=== PATIENT | female | born 1960 | race Caucasian/White ===

== ENCOUNTER 2017-12-21 15:37 | Emergency (ER) | payer SELFPAY ==
[2017-12-21 15:40] VITALS: BP 130/82
[2017-12-21] MEDS ORDERED: IV NORMAL SALINE 1,000ML 1,000 ML IV ONE (16:00)
--- NOTE | 2017-12-21 16:05 | PHYS DOC ---
Past History Past Medical History: No Pertinent History Past Surgical History: No Surgical History Smoking: Non-smoker Alcohol Use: None Drug Use: None Adult General Chief Complaint Chief Complaint: SHORTNESS OF BREATH HPI HPI 57-year-old female presents with 4 day history of dry cough, sore throat, body aches, and mild shortness of breath. The patient has no known sick contacts. She is unsure if she has had a fever at home. She had mild diarrhea yesterday. She denies chest pain. The patient mentioned that she used to be on Coumadin for DVT she had many years ago. She has not been taking Coumadin for several months because she has not had insurance. She was feeling fine prior to this illness. Review of Systems Review of Systems Constitutional: Denies chills [] Eyes: Denies change in visual acuity, redness, or eye pain [] HENT: Has nasal congestion and sore throat [] Respiratory: Dry cough with mild shortness of breath [] Cardiovascular: No additional information not addressed in HPI [] GI: Denies abdominal pain, nausea, vomiting, bloody stools [] : Denies dysuria or hematuria [] Musculoskeletal: Denies back pain or joint pain [] Integument: Denies rash or skin lesions [] Neurologic: Denies headache, focal weakness or sensory changes [] Endocrine: Denies polyuria or polydipsia [] All other systems were reviewed and found to be within normal limits, except as documented in this note. Current Medications Current Medications Current Medications Medications (Trade) Dose Ordered Sig/Wei Start Time Stop Time Status Last Admin Dose Admin Sodium Chloride 1,000 ml @ 1,000 mls/hr 1X ONCE 12/21/17 16:00 12/21/17 16:59 UNV Physical Exam Physical Exam Constitutional: Well developed, well nourished, no acute distress, non-toxic appearance. [] HENT: Normocephalic, atraumatic, bilateral external ears normal, oropharynx moist, no oral exudates, nasal congestion. [] Eyes: PERRLA, EOMI, conjunctiva normal, no discharge. [] Neck: Normal range of motion, no tenderness, supple, no stridor. mild anterior adenopathy worse in the right [] Cardiovascular:Heart rate regular rhythm, no murmur [] Lungs & Thorax: Bilateral breath sounds clear to auscultation [] Abdomen: Bowel sounds normal, soft, no tenderness, no masses, no pulsatile masses. [] Skin: Warm, dry, no erythema, no rash. [] Back: No tenderness, no CVA tenderness. [] Extremities: No tenderness, no cyanosis, no clubbing, ROM intact, no edema. [] Neurologic: Alert and oriented X 3, normal motor function, normal sensory function, no focal deficits noted. [] Psychologic: Affect normal, judgement normal, mood normal. [] EKG EKG [] Radiology/Procedures Radiology/Procedures EXAM: Chest, 2 views. HISTORY: Shortness of air. COMPARISON: None. FINDINGS: Frontal and lateral views of the chest are obtained. There is no infiltrate, effusion or pneumothorax. The heart is normal in size. IMPRESSION: No acute pulmonary finding. Electronically signed by: Iliana Arguelles MD (12/21/2017 4:21 PM) [facility] [place][] Course & Med Decision Making Course & Med Decision Making Pertinent Labs and Imaging studies reviewed. (See chart for details) The patient's labs are unremarkable. Her chest x-ray is unremarkable. Her vital signs are within normal limits. She was given Toradol for her headache has had improvement. Her calves are normal in size bilaterally. They're not painful to palpation. Denies any other evidence to suggest DVT. I believe that she is suffering from a viral illness and is mildly dehydrated. Recommend that she drink plenty of fluids and get rest at home. If her condition worsens or new symptoms develop, she is welcome to return to the emergency department. [] Dragon Disclaimer Dragon Disclaimer This electronic medical record was generated, in whole or in part, using a voice recognition dictation system. Departure Departure: Referrals: PCP,NO (PCP) Scripts Guaifenesin/Codeine Phosphate (GUAIFENESIN-CODEINE SYRUP) 118 Ml Liquid 5 ML PO Q6HRS PRN for COUGH, #120 ML Prov: CHIQUI MCKEON DO 12/21/17 CHIQUI MCKEON DO December 21, 2017 16:05
--- NOTE | 2017-12-21 16:24 | RAD ---
EXAM: Chest, 2 views. HISTORY: Shortness of air. COMPARISON: None. FINDINGS: Frontal and lateral views of the chest are obtained. There is no infiltrate, effusion or pneumothorax. The heart is normal in size. IMPRESSION: No acute pulmonary finding. Electronically signed by: Iliana Arguelles MD (12/21/2017 4:21 PM) [facility] [place]
[2017-12-21 16:34] LABS: BASO # 0.1 x10^3/uL (0.0-0.2); BASO % 1 % (0-3); EOS # 0.3 x10^3/uL (0.0-0.7); EOS % 6 % (0-3); HEMOGLOBIN 13.8 g/dL (12.0-15.5); LYMPH # 1.3 x10^3/uL (1.0-4.8); LYMPH % 23 % (24-48); MEAN CORPUSCULAR HEMOGLOBIN 29 pg (25-35); MEAN CORPUSCULAR HGB CONC 34 g/dL (31-37); MEAN CORPUSCULAR VOLUME 86 fL (79-100); MONO # 0.5 x10^3/uL (0.0-1.1); MONO % 9 % (0-9); NEUT # 3.3 x10^3uL (1.8-7.7); NEUT % 61 % (31-73); PLATELET COUNT 287 x10^3/uL (140-400); RED BLOOD COUNT 4.76 x10^6/uL (3.50-5.40); RED CELL DISTRIBUTION WIDTH 14.8 % (11.5-14.5); WHITE BLOOD COUNT 5.4 x10^3/uL (4.0-11.0)
[2017-12-21 16:39] LABS: CREATININE 1.1 mg/dL (0.6-1.0); GFR 50.8; POTASSIUM 3.8 mmol/L (3.5-5.1)
[2017-12-21] MEDS ORDERED: KETOROLAC 30 MG/ML VIAL. IV ONE (17:00)
[2017-12-21] MEDS ORDERED: GUAI118L13 PO (18:10)
== END 2017-12-21 18:21 | disposition home or self-care (01) ==
LOC: ER 15:37
DX: B34.9 Viral infection, unspecified (principal); E86.0 Dehydration; R51 Headache; Z86.718 Personal history of other venous thrombosis and embolism
CPT/HCPCS: 36415; 71046; 80048; 85025; 96361; 96374; 99285; J1885; J7030

== ENCOUNTER 2018-01-14 10:55 | Emergency (ER) | payer SELFPAY ==
[~2018-01-14] VITALS: Ht 170.2 cm; Wt 86.9 kg
[~2018-01-14 10:55] MED LIST: GUAI118L13 PO
[2018-01-14 11:07] VITALS: BP 135/81
--- NOTE | 2018-01-14 11:25 | PHYS DOC ---
Past History Past Medical History: Diabetes, High Cholesterol, Hypertension Past Surgical History: No Surgical History Smoking: Non-smoker Alcohol Use: None Drug Use: None Adult General Chief Complaint Chief Complaint: SKIN PROBLEM HPI HPI 57-year-old female presents with with scattered rash "all over her body". This started one week ago when the patient started a new garden. She feels like she is getting new areas effected on her skin every couple of days. It is intensely pruritic. She decided to come in today because she can't take the itching anymore and because she has rash around her left eye. She denies fever or chills. She never had anything like this before. Review of Systems Review of Systems Constitutional: Denies fever or chills [] Eyes: Denies change in visual acuity, redness, or eye pain [] HENT: Denies nasal congestion or sore throat [] Respiratory: Denies cough or shortness of breath [] Cardiovascular: No additional information not addressed in HPI [] GI: Denies abdominal pain, nausea, vomiting, bloody stools or diarrhea [] : Denies dysuria or hematuria [] Musculoskeletal: Denies back pain or joint pain [] Integument: Skin rash all over[] Neurologic: Denies headache, focal weakness or sensory changes [] Endocrine: Denies polyuria or polydipsia [] All other systems were reviewed and found to be within normal limits, except as documented in this note. Current Medications Current Medications Current Medications Medications (Trade) Dose Ordered Sig/[facility] Start Time Stop Time Status Last Admin Dose Admin Methylprednisolone Sodium Succinate (SOLU-Medrol 125MG VIAL) 125 mg 1X ONCE 01/14/18 11:45 01/14/18 11:46 Allergies Allergies Allergies Coded Allergies Type Severity Reaction Last Updated Verified Penicillins Allergy Unknown 12/21/17 Yes Sulfa (Sulfonamide Antibiotics) Allergy Unknown 12/21/17 Yes Physical Exam Physical Exam Constitutional: Well developed, well nourished, no acute distress, non-toxic appearance. [] HENT: Normocephalic, atraumatic, bilateral external ears normal, oropharynx moist, no oral exudates, nose normal. [] Eyes: PERRLA, EOMI, conjunctiva normal, no discharge. [] Neck: Normal range of motion, no tenderness, supple, no stridor. [] Cardiovascular:Heart rate regular rhythm, no murmur [] Lungs & Thorax: Bilateral breath sounds clear to auscultation [] Abdomen: Bowel sounds normal, soft, no tenderness, no masses, no pulsatile masses. [] Skin: Erythematous, raised, vesicular patches on the patient's bilateral arms, bilateral legs, around her left eye, on her upper chest.[] Back: No tenderness, no CVA tenderness. [] Extremities: No tenderness, no cyanosis, no clubbing, ROM intact, no edema. [] Neurologic: Alert and oriented X 3, normal motor function, normal sensory function, no focal deficits noted. [] Psychologic: Affect normal, judgement normal, mood normal. [] Current Patient Data Vital Signs Vital Signs Date Time Temp Pulse Resp B/P (MAP) Pulse Ox O2 Delivery O2 Flow Rate FiO2 01/14/18 11:07 98.2 90 18 96 Room Air EKG EKG [] Radiology/Procedures Radiology/Procedures [] Course & Med Decision Making Course & Med Decision Making Pertinent Labs and Imaging studies reviewed. (See chart for details) Patient has contact dermatitis likely due to poison luis. I will treat her with 125 of Solu-Medrol in the ER followed by 14 days of steroid taper. I will also prescribe triamcinolone cream for comfort. [] Dragon Disclaimer Dragon Disclaimer This electronic medical record was generated, in whole or in part, using a voice recognition dictation system. Departure Departure: Referrals: PCP,NO (PCP) CHIQUI MCKEON DO Jan 14, 2018 11:25
[2018-01-14] MEDS ORDERED: TRIA15CR50 TP (11:30)
[2018-01-14] MEDS ORDERED: PRED-220 PO (11:30)
[2018-01-14] MEDS ORDERED: methylPREDNISolone SOD SUCC PF 125 MG/2 ML VIAL. IM ONE (11:45)
== END 2018-01-14 11:40 | disposition home or self-care (01) ==
LOC: ER 10:55
DX: L25.9 Unspecified contact dermatitis, unspecified cause (principal); E11.9 Type 2 diabetes mellitus without complications; E78.00 Pure hypercholesterolemia, unspecified; I10 Essential (primary) hypertension; Z88.0 Allergy status to penicillin; Z88.2 Allergy status to sulfonamides
CPT/HCPCS: 96372; 99283; J2930

== ENCOUNTER 2018-01-31 11:13 | Inpatient (IN) | payer SELFPAY ==
[~2018-01-31] VITALS: Ht 162.6 cm; Wt 88.5 kg
[~2018-01-31 11:13] MED LIST changes: +PRED-220 PO; +TRIA15CR50 TP
[2018-01-31 11:56] LABS: BASO # 0.1 x10^3/uL (0.0-0.2); BASO % 1 % (0-3); EOS # 0.3 x10^3/uL (0.0-0.7); EOS % 4 % (0-3); HEMATOCRIT 38.8 % (36.0-47.0); LYMPH % 10 % (24-48); MEAN CORPUSCULAR HEMOGLOBIN 29 pg (25-35); MEAN CORPUSCULAR HGB CONC 34 g/dL (31-37); MEAN CORPUSCULAR VOLUME 86 fL (79-100); MONO # 0.8 x10^3/uL (0.0-1.1); MONO % 8 % (0-9); NEUT # 7.5 x10^3uL (1.8-7.7); NEUT % 77 % (31-73); PLATELET COUNT 218 x10^3/uL (140-400); RED BLOOD COUNT 4.53 x10^6/uL (3.50-5.40); RED CELL DISTRIBUTION WIDTH 14.4 % (11.5-14.5); WHITE BLOOD COUNT 9.8 x10^3/uL (4.0-11.0)
[2018-01-31 12:01] LABS: CREATININE 1.6 mg/dL (0.6-1.0); POTASSIUM 3.5 mmol/L (3.5-5.1)
[2018-01-31] MEDS ORDERED: IV NORMAL SALINE 1,000ML 1,000 ML IV ONE ×2 (12:15→13:30)
--- NOTE | 2018-01-31 12:58 | RAD ---
EXAM: Bilateral lower extremity venous Doppler sonogram. HISTORY: DVT. Pain. TECHNIQUE: Montes scale and color Doppler sonographic evaluation of the bilateral lower extremity veins with spectral waveform analysis was performed. FINDINGS: There is nonocclusive thrombus within the left common femoral vein, occlusive thrombus within the left superficial femoral vein and popliteal vein, and nonocclusive thrombus within the left calf veins. There is normal color flow, normal compressibility and there are normal spectral waveforms in the right lower extremity veins. IMPRESSION: 1. Extensive left lower extremity deep venous thrombosis, described above. 2. No Doppler evidence of right lower extremity venous thrombosis. Electronically signed by: Iliana Arguelles MD (01/31/2018 12:55 PM) [facility]
[2018-01-31] MEDS ORDERED: HEPARIN for IV BOLUS 10,000 UNIT/10 ML VIAL. IV PRN ×2 (13:15)
[2018-01-31] MEDS ORDERED: HEPARIN for IV BOLUS 10,000 UNIT/10 ML VIAL. IV ONE (13:15)
[2018-01-31] MEDS ORDERED: WARFARIN 5 MG TABLET. PO ONE (13:30)
[2018-01-31] MEDS ORDERED: ONDANSETRON PF 4 MG/2 ML VIAL. IV PRN (13:30)
[2018-01-31] MEDS ORDERED: ACETAMINOPHEN 325 MG TABLET PO PRN (13:30)
--- NOTE | 2018-01-31 13:30 | ED.ADGEN ---
Past History Past Medical History: Diabetes, High Cholesterol, Hypertension Past Surgical History: No Surgical History Smoking: Non-smoker Alcohol Use: None Drug Use: None Adult General HPI HPI Patient is a 57 year old female who presents with left leg pain. Patient has had some swelling and pain about the left lower extremity, particularly distal to the knee. The patient has had no recent injury or strenuous activity. She is not on estrogen replacement therapy. She has had no recent travel. She does have a prior history of a DVT in the right leg. Based on her recollection, it sounds that the incident was provoked. She had a fractured toe and was laid up for some period of time. About a week later, she developed DVT in the right leg. She was treated with Coumadin. She recalls that her dose was 7 mg. She took this medication for about 1-1/2 years and eventually just ran out. Presenting symptoms today seem similar to her prior DVT. Review of Systems Review of Systems Constitutional: Denies fever or chills Eyes: Denies change in visual acuity HENT: Denies nasal congestion Respiratory: Denies cough or shortness of breath Cardiovascular: No additional information not addressed in HPI GI: Denies abdominal pain, nausea : Denies dysuria or hematuria Musculoskeletal: Denies back pain Integument: Denies rash or skin lesions Neurologic: Denies headache All other systems were reviewed and found to be within normal limits, except as documented in this note. Current Medications Current Medications Current Medications Medications (Trade) Dose Ordered Sig/Wei Start Time Stop Time Status Last Admin Dose Admin Acetaminophen (Tylenol) 650 mg PRN Q4HRS PRN 01/31/18 13:30 02/01/18 13:29 UNV Acetaminophen/ Hydrocodone Bitart (Lortab 5/325) 2 tab Q6H PRN 01/31/18 13:30 UNV Heparin Sodium (Porcine) (Heparin Sodium) 1,000 unit PRN Q6HRS PRN 01/31/18 13:15 Heparin Sodium/ Dextrose 500 ml @ 0 mls/hr CONT PRN 01/31/18 13:15 Ondansetron HCl (Zofran) 4 mg PRN Q4HRS PRN 01/31/18 13:30 02/01/18 13:29 UNV Sodium Chloride 1,000 ml @ 1,000 mls/hr 1X ONCE 01/31/18 12:15 01/31/18 13:15 DC 01/31/18 12:15 1,000 MLS/HR Warfarin Sodium (Coumadin) 10 mg 1X ONCE 01/31/18 13:30 01/31/18 13:31 UNV Allergies Allergies Allergies Coded Allergies Type Severity Reaction Last Updated Verified Penicillins Allergy Unknown 12/21/17 Yes Sulfa (Sulfonamide Antibiotics) Allergy Unknown 12/21/17 Yes Physical Exam Physical Exam Constitutional: Well developed, well nourished, no acute distress, non-toxic appearance HENT: Normocephalic, atraumatic, bilateral external ears normal, oropharynx moist Eyes: PERRLA, EOMI, conjunctiva normal Neck: Normal range of motion, no tenderness Cardiovascular:Heart rate regular rhythm Lungs & Thorax: Bilateral breath sounds clear to auscultation Skin: Warm, dry, no erythema, no rash Back: Normal ROM Extremities: Mild swelling about the left calf muscles. Tender to palpate as well in the same area. She has 2+ dorsalis pedis pulses. Capillary refill is less than 2 seconds. Neurologic: Alert and oriented X 3 Psychologic: Affect normal Current Patient Data Vital Signs Vital Signs Date Time Temp Pulse Resp B/P (MAP) Pulse Ox O2 Delivery O2 Flow Rate FiO2 01/31/18 11:35 109 20 98 01/31/18 11:23 99.3 Room Air Lab Results Laboratory Tests Test 01/31/18 11:40 White Blood Count 9.8 x10^3/uL (4.0-11.0) Red Blood Count 4.53 x10^6/uL (3.50-5.40) Hemoglobin 13.0 g/dL (12.0-15.5) Hematocrit 38.8 % (36.0-47.0) Mean Corpuscular Volume 86 fL (79-100) Mean Corpuscular Hemoglobin 29 pg (25-35) Mean Corpuscular Hemoglobin Concent 34 g/dL (31-37) Red Cell Distribution Width 14.4 % (11.5-14.5) Platelet Count 218 x10^3/uL (140-400) Neutrophils (%) (Auto) 77 % (31-73) H Lymphocytes (%) (Auto) 10 % (24-48) L Monocytes (%) (Auto) 8 % (0-9) Eosinophils (%) (Auto) 4 % (0-3) H Basophils (%) (Auto) 1 % (0-3) Neutrophils # (Auto) 7.5 x10^3uL (1.8-7.7) Lymphocytes # (Auto) 1.0 x10^3/uL (1.0-4.8) Monocytes # (Auto) 0.8 x10^3/uL (0.0-1.1) Eosinophils # (Auto) 0.3 x10^3/uL (0.0-0.7) Basophils # (Auto) 0.1 x10^3/uL (0.0-0.2) Prothrombin Time 9.7 SEC (9.4-11.4) Prothrombin Time INR 0.9 (0.9-1.1) PTT 24 SEC (23-33) Sodium Level 131 mmol/L (136-145) L Potassium Level 3.5 mmol/L (3.5-5.1) Chloride Level 96 mmol/L (98-107) L Carbon Dioxide Level 30 mmol/L (21-32) Anion Gap 5 (6-14) L Blood Urea Nitrogen 25 mg/dL (7-20) H Creatinine 1.6 mg/dL (0.6-1.0) H Estimated GFR (Cockcroft-Gault) 33.0 Glucose Level 111 mg/dL (70-99) H Calcium Level 9.0 mg/dL (8.5-10.1) EKG EKG [] Radiology/Procedures Radiology/Procedures FINDINGS: There is nonocclusive thrombus within the left common femoral vein, occlusive thrombus within the left superficial femoral vein and popliteal vein, and nonocclusive thrombus within the left calf veins. There is normal color flow, normal compressibility and there are normal spectral waveforms in the right lower extremity veins. IMPRESSION: 1. Extensive left lower extremity deep venous thrombosis, described above. 2. No Doppler evidence of right lower extremity venous thrombosis. Course & Med Decision Making Course & Med Decision Making Pertinent Labs and Imaging studies reviewed. (See chart for details) Patient is seen and examined on arrival to the ER. She complains of symptoms that are suspicious for recurrent deep vein thrombosis, this time in the left leg. Given her history of DVT in the right, plan is to ultrasound bilateral lower extremities. 13:15: Labs are reviewed. The patient has a creatinine of 1.6. She denies that she has had elevation of creatinine in the past. There is only a single result available in the electronic medical record which is at the top end of normal. The rest of her labs are unremarkable. In the ER, she was given 1 L of normal saline. Orders were written for the patient to receive an acid 200 per hour for an additional liter. The Doppler study of the lower extremities was revealing for the suspected diagnosis on the left. There was no DVT seen on the right. Given her creatinine elevation, the patient is a poor candidate for outpatient therapy with Lovenox. I discussed this patient with Dr. Etienne for admission. He is agreeable to evaluate the patient. Inpatient orders are written for bridge Coumadin 10 mg times single dose in the ER. Heparin bolus and drip. All results are explained to the patient and all of her questions are answered prior to admission. She is agreeable to this plan of care. The patient normally follows at a clinic in [place] and does not have a primary care physician in [place]. Final Impression Final Impression DVT Left Lower Extremity Acute Kidney Injury Dehydration Dragon Disclaimer Dragon Disclaimer This electronic medical record was generated, in whole or in part, using a voice recognition dictation system. MAGEN ARAIZA DO Jan 31, 2018 13:30
[2018-01-31 14:15] VITALS: BP 116/73
[2018-01-31] MEDS ORDERED: BISACODYL TAB 5 MG TABLET.DR. PO PRN (16:00)
[2018-01-31] MEDS ORDERED: WARFARIN 7.5 MG TABLET. PO SCH (16:30)
[2018-01-31] MEDS: HEPARIN 25,000UTS/500ML PREMIX 500 ML IV PRN (17:13)
--- NOTE | 2018-01-31 17:15 | ED.ADGEN ---
Past History Past Medical History: Diabetes ("pre-diabetes" diet controlled, no home glucose checks), High Cholesterol, Hypertension, Other (restless leg syndrome, right lower extremity DVT presumed to be secondary to right fifth toe fracture) Additional Past Medical Histor: patient's mother had blood clots in her lower extremities Past Surgical History: No Surgical History Smoking: Non-smoker Alcohol Use: None Drug Use: None Adult General Chief Complaint Chief Complaint Left leg pain HPI HPI Patient is a 57-year-old female who presented to the emergency department earlier today with a complaint of worsening left leg pain for the past several days. She states that she had no preceding trauma or periods of sedentary activity, she is a smoker and is not on any hormone replacement and denies any recent travel. The pain originates just distal to the patella primarily at the posterior aspect of the lower leg however the pain does radiate both up and down the patient's leg. Patient denies any leg weakness however the pain does limit her activity. The patient was extensively evaluated in the emergency department and found to have extensive deep vein thromboses. The patient does have a history of a right lower leg DVT approximately 4 years ago. At that time it was thought to be due to swelling and decreased activity following a right fifth toe fracture. No hypercoagulable workup and the patient transitioned on Lovenox to Coumadin she says her INR remained therapeutic on 7 mg Coumadin daily. The patient took Coumadin for about a year and a half until she discontinued medication on her own. Through questioning I find that the patient's mother did have "several blood clots" in her legs through her life but the patient is not aware of any diagnosed condition. Patient's creatinine was elevated at 1.6 in the emergency department so she was admitted and placed on heparin drip and initiation of Coumadin. She is just getting over poison IV of the right leg and finished a steroid taper several days ago. Review of Systems Review of Systems Constitutional: Denies fever or chills [] Eyes: Denies change in visual acuity, redness, or eye pain [] HENT: Denies nasal congestion or sore throat [] Respiratory: Denies cough or shortness of breath [] Cardiovascular: No chest pain or palpitations GI: Denies abdominal pain, nausea, vomiting, bloody stools or diarrhea , positive constipation [] : Denies dysuria or hematuria [] Musculoskeletal: Denies back pain or joint pain only pain complaint per history of present illness [] Integument: Denies rash or skin lesions other than recent poison luis [] Neurologic: Denies headache, focal weakness or sensory changes [] Endocrine: Denies polyuria or polydipsia [] All other systems were reviewed and found to be within normal limits, except as documented in this note. Family History Family History Significant for mother with multiple lower extremity DVTs Current Medications Current Medications Current Medications Medications (Trade) Dose Ordered Sig/Wei Start Time Stop Time Status Last Admin Dose Admin Acetaminophen (Tylenol) 650 mg PRN Q4HRS PRN 01/31/18 13:30 02/01/18 13:29 01/31/18 13:30 650 MG Acetaminophen/ Hydrocodone Bitart (Lortab 5/325) 2 tab PRN Q6HRS PRN 01/31/18 18:00 01/31/18 18:00 DC Acetaminophen/ Hydrocodone Bitart (Lortab 7.5/325) 1 tab PRN Q6HRS PRN 01/31/18 16:00 Amlodipine Besylate (Norvasc) 5 mg DAILY 02/01/18 09:00 Bisacodyl (Dulcolax Tab) 5 mg PRN DAILY PRN 01/31/18 16:00 Heparin Sodium (Porcine) (Heparin Sodium) 1,000 unit PRN Q6HRS PRN 01/31/18 13:15 Heparin Sodium/ Dextrose 500 ml @ 0 mls/hr CONT PRN 01/31/18 13:15 Ondansetron HCl (Zofran) 4 mg PRN Q4HRS PRN 01/31/18 13:30 02/01/18 13:29 Sodium Chloride 1,000 ml @ 200 mls/hr 1X ONCE 01/31/18 13:30 01/31/18 18:29 Warfarin Sodium (Coumadin Per Physician) 1 each PRN DAILY PRN 01/31/18 16:30 Warfarin Sodium (Coumadin) 7.5 mg DAILY16 02/01/18 16:00 UNV Allergies Allergies Allergies Coded Allergies Type Severity Reaction Last Updated Verified Penicillins Allergy Unknown 12/21/17 Yes Sulfa (Sulfonamide Antibiotics) Allergy Unknown 12/21/17 Yes Physical Exam Physical Exam Constitutional: Well developed, well nourished, no acute distress, non-toxic appearance. [] HENT: Normocephalic, atraumatic, bilateral external ears normal, oropharynx moist, no oral exudates, nose normal. [] Eyes: PERRLA, EOMI, conjunctiva normal, no discharge. [] Neck: Normal range of motion, no tenderness, supple, no stridor. [] Cardiovascular:Heart rate regular rhythm, no murmur [] Lungs & Thorax: Bilateral breath sounds clear to auscultation [] Abdomen: Bowel sounds normal, soft, no tenderness, no masses, no pulsatile masses. [] Skin: Warm, dry, no erythema, no rash. [] Back: No tenderness, no CVA tenderness. [] Extremities: Mild swelling and associated tenderness proximal aspect of the left lower leg, no palpable subcutaneous nodularities or masses, no cyanosis, no clubbing, ROM intact, no edema. [] Neurologic: Alert and oriented X 3, normal motor function, normal sensory function, no focal deficits noted. [] Psychologic: Affect normal, judgement normal, mood normal. [] Current Patient Data Vital Signs Vital Signs Date Time Temp Pulse Resp B/P (MAP) Pulse Ox O2 Delivery O2 Flow Rate FiO2 01/31/18 14:15 98.3 90 18 116/73 (87) 97 Room Air Lab Results Laboratory Tests Test 01/31/18 11:40 White Blood Count 9.8 x10^3/uL (4.0-11.0) Red Blood Count 4.53 x10^6/uL (3.50-5.40) Hemoglobin 13.0 g/dL (12.0-15.5) Hematocrit 38.8 % (36.0-47.0) Mean Corpuscular Volume 86 fL (79-100) Mean Corpuscular Hemoglobin 29 pg (25-35) Mean Corpuscular Hemoglobin Concent 34 g/dL (31-37) Red Cell Distribution Width 14.4 % (11.5-14.5) Platelet Count 218 x10^3/uL (140-400) Neutrophils (%) (Auto) 77 % (31-73) H Lymphocytes (%) (Auto) 10 % (24-48) L Monocytes (%) (Auto) 8 % (0-9) Eosinophils (%) (Auto) 4 % (0-3) H Basophils (%) (Auto) 1 % (0-3) Neutrophils # (Auto) 7.5 x10^3uL (1.8-7.7) Lymphocytes # (Auto) 1.0 x10^3/uL (1.0-4.8) Monocytes # (Auto) 0.8 x10^3/uL (0.0-1.1) Eosinophils # (Auto) 0.3 x10^3/uL (0.0-0.7) Basophils # (Auto) 0.1 x10^3/uL (0.0-0.2) Prothrombin Time 9.7 SEC (9.4-11.4) Prothrombin Time INR 0.9 (0.9-1.1) PTT 24 SEC (23-33) Sodium Level 131 mmol/L (136-145) L Potassium Level 3.5 mmol/L (3.5-5.1) Chloride Level 96 mmol/L (98-107) L Carbon Dioxide Level 30 mmol/L (21-32) Anion Gap 5 (6-14) L Blood Urea Nitrogen 25 mg/dL (7-20) H Creatinine 1.6 mg/dL (0.6-1.0) H Estimated GFR (Cockcroft-Gault) 33.0 Glucose Level 111 mg/dL (70-99) H Calcium Level 9.0 mg/dL (8.5-10.1) EKG EKG [] Radiology/Procedures Radiology/Procedures [] PATIENT: SLOAN AVITIA ACCOUNT: [id number] : 1960 LOCATION: ER AGE: 57 SEX: F EXAM STATUS: REG ER ORD. PHYSICIAN: MAGEN ARAIZA DO REASON: previus blood clots LT LEG PAIN HX OF DVT RT 4 YRS AGO PROCEDURE: VENOUS LOWER EXT BILATERAL EXAM: Bilateral lower extremity venous Doppler sonogram. HISTORY: DVT. Pain. TECHNIQUE: Montes scale and color Doppler sonographic evaluation of the bilateral lower extremity veins with spectral waveform analysis was performed. FINDINGS: There is nonocclusive thrombus within the left common femoral vein, occlusive thrombus within the left superficial femoral vein and popliteal vein, and nonocclusive thrombus within the left calf veins. There is normal color flow, normal compressibility and there are normal spectral waveforms in the right lower extremity veins. IMPRESSION: 1. Extensive left lower extremity deep venous thrombosis, described above. 2. No Doppler evidence of right lower extremity venous thrombosis. Electronically signed by: Iliana Espitia MD (01/31/2018 12:55 PM) [place] [id number] DICTATED AND SIGNED BY: ILIANA ESPITIA MD DATE: 01/31/18 [id number] CC: MAGEN ARAIZA DO; PCP,NO ~ Impressions: Left lower extremity DVT Suspicion for possible inherited coagulopathy Renal insufficiency likely secondary to dehydration Patient will be admitted and started on heparin drip due to renal insufficiency. Potential nephrotoxic medications will be temporarily discontinued and the patient will receive a fluid challenge. She was placed on a heparin drip and after receiving 10 mg of Coumadin in the emergency department will begin receiving 7.5 mg daily. Kidney function improved with hydration will plan for DC home with Lovenox. Pain control with [place] 7.5 mg. Course & Med Decision Making Course & Med Decision Making Pertinent Labs and Imaging studies reviewed. (See chart for details) [] Final Impression Final Impression [] Dragon Disclaimer Dragon Disclaimer This electronic medical record was generated, in whole or in part, using a voice recognition dictation system. STACIE NOYOLA DO Jan 31, 2018 5:15 pm
[2018-01-31] MEDS: HYDROcodone/APAP 7.5/325MG 1 TAB TABLET PO PRN (17:19)
[2018-01-31] MEDS ORDERED: HYDROcodone/APAP 5/325MG 1 TAB TABLET PO PRN (18:00)
[2018-01-31 19:31] VITALS: BP 102/72
[2018-02-01] MEDS: HYDROcodone/APAP 7.5/325MG 1 TAB TABLET PO PRN ×4 (00:34→22:37)
[2018-02-01 06:46] VITALS: BP 96/65
[2018-02-01 07:03] LABS: ALBUMIN 2.6 g/dL (3.4-5.0); ALBUMIN/GLOBULIN RATIO 0.7 (1.0-1.7); CALCIUM 8.7 mg/dL (8.5-10.1); CREATININE 1.2 mg/dL (0.6-1.0); POTASSIUM 3.1 mmol/L (3.5-5.1); TOTAL BILIRUBIN 0.4 mg/dL (0.2-1.0); TOTAL PROTEIN 6.5 g/dL (6.4-8.2)
[2018-02-01] MEDS ORDERED: POTASSIUM CHLORIDE 20 MEQ TABLET.ER. PO ONE (08:00)
[2018-02-01] MEDS: amLODIPine BESYLATE 5 MG TABLET PO SCH (09:00)
[2018-02-01 10:51] VITALS: BP 105/70
[2018-02-01] MEDS: HEPARIN 25,000UTS/500ML PREMIX 500 ML IV PRN (12:30)
[2018-02-01 15:16] VITALS: BP 103/72
[2018-02-01] MEDS ORDERED: WARFARIN 7.5 MG TABLET. PO SCH (16:00)
--- NOTE | 2018-02-01 18:50 | PDOC ---
SUBJECTIVE: Patient is sitting up in bed eating dinner on my evaluation. She is alert and pleasant and denies any complaints. Her leg pain is controlled with oral medications and she denies any new issues. Nursing reports that the patient has remained stable and without complaints and my last evaluation. Her labs reveal that IV fluids have improved her kidney function, her BUN 19 and creatinine 1.2 , sodium 135 potassium 3.1. No adverse effects or evidence of bleeding on heparin protocol drip. OBJECTIVE: Problems: Problems Medical Problems: (1) Acute kidney injury Status: Acute (2) DVT (deep venous thrombosis) Status: Acute Vital Signs: Vital Signs Date Time Temp Pulse Resp B/P (MAP) Pulse Ox O2 Delivery O2 Flow Rate FiO2 02/01/18 18:09 99 Room Air 02/01/18 15:16 98.4 95 20 103/72 (82) I & O Intake and Output 02/01/18 07:00 Intake Total 480 ml Output Total 1000 ml Balance -520 ml Intake Oral 480 ml Output Urine Total 1000 ml # Voids 1 Labs: Laboratory Tests Test 01/31/18 11:40 01/31/18 23:35 02/01/18 06:25 02/01/18 06:28 White Blood Count 9.8 x10^3/uL (4.0-11.0) Red Blood Count 4.53 x10^6/uL (3.50-5.40) Hemoglobin 13.0 g/dL (12.0-15.5) Hematocrit 38.8 % (36.0-47.0) Mean Corpuscular Volume 86 fL (79-100) Mean Corpuscular Hemoglobin 29 pg (25-35) Mean Corpuscular Hemoglobin Concent 34 g/dL (31-37) Red Cell Distribution Width 14.4 % (11.5-14.5) Platelet Count 218 x10^3/uL (140-400) Neutrophils (%) (Auto) 77 % (31-73) Lymphocytes (%) (Auto) 10 % (24-48) Monocytes (%) (Auto) 8 % (0-9) Eosinophils (%) (Auto) 4 % (0-3) Basophils (%) (Auto) 1 % (0-3) Neutrophils # (Auto) 7.5 x10^3uL (1.8-7.7) Lymphocytes # (Auto) 1.0 x10^3/uL (1.0-4.8) Monocytes # (Auto) 0.8 x10^3/uL (0.0-1.1) Eosinophils # (Auto) 0.3 x10^3/uL (0.0-0.7) Basophils # (Auto) 0.1 x10^3/uL (0.0-0.2) Erythrocyte Sedimentation Rate 36 (0-25) Prothrombin Time 9.7 SEC (9.4-11.4) 11.3 SEC (9.4-11.4) Prothromb Time International Ratio 0.9 (0.9-1.1) 1.1 (0.9-1.1) Activated Partial Thromboplast Time 24 SEC (23-33) 46 SEC (23-33) 77 SEC (23-33) Sodium Level 131 mmol/L (136-145) 135 mmol/L (136-145) Potassium Level 3.5 mmol/L (3.5-5.1) 3.1 mmol/L (3.5-5.1) Chloride Level 96 mmol/L (98-107) 99 mmol/L (98-107) Carbon Dioxide Level 30 mmol/L (21-32) 32 mmol/L (21-32) Anion Gap 5 (6-14) 4 (6-14) Blood Urea Nitrogen 25 mg/dL (7-20) 19 mg/dL (7-20) Creatinine 1.6 mg/dL (0.6-1.0) 1.2 mg/dL (0.6-1.0) Estimated GFR (Cockcroft-Gault) 33.0 46.0 Glucose Level 111 mg/dL (70-99) 106 mg/dL (70-99) Calcium Level 9.0 mg/dL (8.5-10.1) 8.7 mg/dL (8.5-10.1) BUN/Creatinine Ratio 16 (6-20) Total Bilirubin 0.4 mg/dL (0.2-1.0) Aspartate Amino Transf (AST/SGOT) 20 U/L (15-37) Alanine Aminotransferase (ALT/SGPT) 24 U/L (14-59) Alkaline Phosphatase 87 U/L (46-116) Total Protein 6.5 g/dL (6.4-8.2) Albumin 2.6 g/dL (3.4-5.0) Albumin/Globulin Ratio 0.7 (1.0-1.7) Glucose (Fingerstick) 102 mg/dL (70-99) Test 02/01/18 12:55 Activated Partial Thromboplast Time 59 SEC (23-33) Physical Exam: Gen.: No apparent distress, alert and pleasant HEENT: Mucous membranes moist, and throat clear normocephalic, dentures removed on my evaluation neck: supple without tenderness or lymphadenopathy Cardiovascular: Regular rate and rhythm no murmur Pulmonary: No chest tenderness, good air movement and no respiratory distress Abdomen: Soft nontender nondistended no palpable masses Extremities: No clubbing or cyanosis no obvious swelling or skin changes ASSESSMENT: Lower extremity DVT Acute kidney injury secondary to dehydration, improving PLAN: I discussed possible discharge and Lovenox. Patient states she cannot afford the medication and we will need to discuss this with case management. If we are able to get her short course of medication before she gets in with her doctor patient states that she can stay with her sister who will administer the shots as she cannot do it herself. Continue heparin drip and plan for probable discharge home tomorrow. STACIE NOYOLA DO Feb 01, 2018 6:50 pm
[2018-02-01 19:20] VITALS: BP 103/68
[2018-02-01 23:00] VITALS: BP 103/63
[2018-02-02] MEDS: HYDROcodone/APAP 7.5/325MG 1 TAB TABLET PO PRN ×2 (05:07→11:03)
[2018-02-02 05:25] VITALS: BP 112/70
[2018-02-02] MEDS: amLODIPine BESYLATE 5 MG TABLET PO SCH (09:31)
[2018-02-02 09:53] LABS: CALCIUM 8.4 mg/dL (8.5-10.1); CREATININE 1.1 mg/dL (0.6-1.0); GFR 50.8
[2018-02-02] MEDS: HEPARIN 25,000UTS/500ML PREMIX 500 ML IV PRN (09:53)
[2018-02-02 11:11] VITALS: BP 105/73
[2018-02-02] MEDS ORDERED: HYDR-2762 PO (11:12)
[2018-02-02] MEDS ORDERED: AMLO5TAB2 PO (11:12)
[2018-02-02] MEDS ORDERED: APIX5TAB3 PO (11:12)
[2018-02-02] MEDS ORDERED: APIXABAN 5 MG TABLET. PO ONE (11:15)
--- NOTE | 2018-02-02 12:06 | PDOC3 ---
Discharge Summary Visit Information Date of Admission: Jan 31, 2018 Date of Discharge: Feb 02, 2018 Admitting Diagnosis: lower extremity DVT, dehydration, renal insufficiency Final Diagnosis Problems Medical Problems: (1) Acute kidney injury Status: Acute (2) DVT (deep venous thrombosis) Status: Acute Brief Hospital Course Allergies Allergies Coded Allergies Type Severity Reaction Last Updated Verified Penicillins Allergy Unknown 12/21/17 Yes Sulfa (Sulfonamide Antibiotics) Allergy Unknown 12/21/17 Yes Vital Signs Vital Signs Date Time Temp Pulse Resp B/P (MAP) Pulse Ox O2 Delivery O2 Flow Rate FiO2 02/02/18 11:11 98.2 96 18 105/73 (84) 96 Room Air Lab Results Laboratory Tests Test 01/31/18 23:35 02/01/18 06:25 02/01/18 06:28 02/01/18 12:55 Activated Partial Thromboplast Time 46 SEC (23-33) 77 SEC (23-33) 59 SEC (23-33) Prothrombin Time 11.3 SEC (9.4-11.4) Prothromb Time International Ratio 1.1 (0.9-1.1) Sodium Level 135 mmol/L (136-145) Potassium Level 3.1 mmol/L (3.5-5.1) Chloride Level 99 mmol/L (98-107) Carbon Dioxide Level 32 mmol/L (21-32) Anion Gap 4 (6-14) Blood Urea Nitrogen 19 mg/dL (7-20) Creatinine 1.2 mg/dL (0.6-1.0) Estimated GFR (Cockcroft-Gault) 46.0 BUN/Creatinine Ratio 16 (6-20) Glucose Level 106 mg/dL (70-99) Calcium Level 8.7 mg/dL (8.5-10.1) Total Bilirubin 0.4 mg/dL (0.2-1.0) Aspartate Amino Transf (AST/SGOT) 20 U/L (15-37) Alanine Aminotransferase (ALT/SGPT) 24 U/L (14-59) Alkaline Phosphatase 87 U/L (46-116) Total Protein 6.5 g/dL (6.4-8.2) Albumin 2.6 g/dL (3.4-5.0) Albumin/Globulin Ratio 0.7 (1.0-1.7) Glucose (Fingerstick) 102 mg/dL (70-99) Test 02/02/18 06:16 Prothrombin Time 14.1 SEC (9.4-11.4) Prothromb Time International Ratio 1.4 (0.9-1.1) Activated Partial Thromboplast Time 81 SEC (23-33) Sodium Level 135 mmol/L (136-145) Potassium Level 4.0 mmol/L (3.5-5.1) Chloride Level 101 mmol/L (98-107) Carbon Dioxide Level 29 mmol/L (21-32) Anion Gap 5 (6-14) Blood Urea Nitrogen 14 mg/dL (7-20) Creatinine 1.1 mg/dL (0.6-1.0) Estimated GFR (Cockcroft-Gault) 50.8 Glucose Level 100 mg/dL (70-99) Calcium Level 8.4 mg/dL (8.5-10.1) Brief Hospital Course Ms. Gary is a 57 old female who presented to the emergency department with left lower leg pain. Her evaluation revealed a DVT and due to mild renal insufficiency thought secondary to dehydration the patient was admitted to the hospital with heparin anticoagulation and she was started on Coumadin. Fluid challenge did improve her kidney status and she was actually ready for discharge home yesterday. Due to insufficient funds for outpatient anticoagulation medications case management was consulted. Case management has provided 30 days of eliquis during which time she needs to follow-up with her doctor to arrange for future care. She is encouraged to continue to drink plenty of fluids and advised that as this is a recurrent DVT it is likely she will require lifetime anticoagulation. Discharge Information Condition at Discharge: Stable Follow Up: Weeks (in one week with her primary care physician.) Disposition/Orders: D/C to Home Dischare Medications Current Medications Sodium Chloride 1,000 ml @ 1,000 mls/hr 1X ONCE IV Last administered on at 12:15; Start 01/31/18 at 12:15; Stop 01/31/18 at 13:15; Status DC Heparin Sodium/ Dextrose 500 ml @ 0 mls/hr CONT PRN IV SEE I/O RECORD Last administered on 02/02/18at 09:53; Start 01/31/18 at 13:15; Stop 02/02/18 at 10:54 ; Status DC Heparin Sodium (Porcine) (Heparin Sodium) 6,525 unit 1X ONCE IV Last administered on 01/31/18at 13:32; Start 01/31/18 at 13:15; Stop 01/31/18 at 13:16 ; Status DC Heparin Sodium (Porcine) (Heparin Sodium) 2,000 unit PRN Q6HRS PRN IV FOLLOW PROTOCOL GUIDELINES; Start 01/31/18 at 13:15; Stop 02/02/18 at 11:06; Status DC Heparin Sodium (Porcine) (Heparin Sodium) 1,000 unit PRN Q6HRS PRN IV FOLLOW PROTOCOL GUIDELINES; Start 01/31/18 at 13:15; Stop 02/02/18 at 11:07; Status DC Ondansetron HCl (Zofran) 4 mg PRN Q4HRS PRN IV NAUSEA/VOMITING; Start 01/31/18 at 13:30; Stop 02/01/18 at 13:29; Status DC Acetaminophen (Tylenol) 650 mg PRN Q4HRS PRN PO FEVER Last administered on 01/31at 13:30; Start 01/31/18 at 13:30; Stop 02/01/18 at 13:29; Status DC Acetaminophen/ Hydrocodone Bitart (Lortab 5/325) 2 tab PRN Q6HRS PRN PO PAIN; Start 01/31/18 at 18:00; Stop 01/31/18 at 18:00; Status DC Warfarin Sodium (Coumadin) 10 mg 1X ONCE PO Last administered on 01/31/18at 13: 30; Start 01/31/18 at 13:30; Stop 01/31/18 at 13:31; Status DC Sodium Chloride 1,000 ml @ 200 mls/hr 1X ONCE IV Last administered on at 17:11; Start 01/31/18 at 13:30; Stop 01/31/18 at 18:29; Status DC Amlodipine Besylate (Norvasc) 5 mg DAILY PO Last administered on 02/02/18at 09: 31; Start 02/01/18 at 09:00 Acetaminophen/ Hydrocodone Bitart (Lortab 7.5/325) 1 tab PRN Q6HRS PRN PO PAIN Last administered on 02/02/18at 11:03; Start 01/31/18 at 16:00 Bisacodyl (Dulcolax Tab) 5 mg PRN DAILY PRN PO CONSTIPATION; Start 01/31/18 at 16:00 Warfarin Sodium (Coumadin) 7.5 mg DAILY16 PO ; Start 01/31/18 at 16:30; Stop at 16:54; Status DC Warfarin Sodium (Coumadin Per Physician) 1 each PRN DAILY PRN MC SEE COMMENTS; Start 01/31/18 at 16:30; Stop 02/02/18 at 10:54; Status DC Warfarin Sodium (Coumadin) 7.5 mg DAILY16 PO Last administered on 02/01/18at 16: 31; Start 02/01/18 at 16:00; Stop 02/02/18 at 10:54; Status DC Potassium Chloride (Klor-Con) 40 meq 1X ONCE PO Last administered on at 09:29; Start 02/01/18 at 08:00; Stop 02/01/18 at 08:01; Status DC Apixaban (Eliquis) 10 mg 1X ONCE PO Last administered on 02/02/18at 11:13; Start 02/02/18 at 11:15; Stop 02/02/18 at 11:16; Status DC Active Scripts Active Hydrocodone-Apap 7.5-325 (Hydrocodone Bit/Acetaminophen) 1 Each Tablet 1 Tab PO PRN Q6HRS PRN Amlodipine Besylate 5 Mg Tablet 5 Mg PO DAILY 30 Days Eliquis (Apixaban) 5 Mg Tablet 10 Mg PO BID 7 Days Patient Instructions Patient Instuctions In addition to the prescriptions she received for eliquis 10mg bid x 7 days followed by 5mg bid, amlodipine 5 mg daily and [place] 7.5 mg when necessary quantity 30 the patient was advised to continue taking her Requip 10 mg at bedtime, gabapentin 600 mg in the morning 1200 mg in the evening, amitriptyline 50 mg at bedtime, simvastatin 40 mg daily, and hydrochlorothiazide 25 mg daily. STACIE NOYOLA DO Feb 02, 2018 12:06 pm
--- NOTE | 2018-02-02 12:13 | PDOC ---
SUBJECTIVE: I found the patient lying awake in bed after having eaten breakfast. She is pleasant and alert and denies any new issues or concerns overnight. She is pleased to hear that case management is able to provide a 30 day supply of anticoagulation as an outpatient and eager for discharge. She denies any complaints. I did explain to her that her blood pressure had been adequately managed with amlodipine as an inpatient and if she wanted to restart on lisinopril she should address that with her primary care doctor. OBJECTIVE: Problems: Problems Medical Problems: (1) Acute kidney injury Status: Acute (2) DVT (deep venous thrombosis) Status: Acute Sodium is 135, potassium 4.0, chloride 101, CO2 29, BUN 14, creatinine 1.1, glucose 100, PT 14.1, INR 1.4 Vital Signs: Vital Signs Date Time Temp Pulse Resp B/P (MAP) Pulse Ox O2 Delivery O2 Flow Rate FiO2 02/02/18 11:11 98.2 96 18 105/73 (84) 96 Room Air I & O Intake and Output 02/02/18 07:00 Intake Total 960 ml Output Total 975 ml Balance -15 ml Intake Oral 960 ml Output Urine Total 975 ml # Voids 4 # Bowel Movements 1 Labs: Laboratory Tests Test 01/31/18 23:35 02/01/18 06:25 02/01/18 06:28 02/01/18 12:55 Activated Partial Thromboplast Time 46 SEC (23-33) 77 SEC (23-33) 59 SEC (23-33) Prothrombin Time 11.3 SEC (9.4-11.4) Prothromb Time International Ratio 1.1 (0.9-1.1) Sodium Level 135 mmol/L (136-145) Potassium Level 3.1 mmol/L (3.5-5.1) Chloride Level 99 mmol/L (98-107) Carbon Dioxide Level 32 mmol/L (21-32) Anion Gap 4 (6-14) Blood Urea Nitrogen 19 mg/dL (7-20) Creatinine 1.2 mg/dL (0.6-1.0) Estimated GFR (Cockcroft-Gault) 46.0 BUN/Creatinine Ratio 16 (6-20) Glucose Level 106 mg/dL (70-99) Calcium Level 8.7 mg/dL (8.5-10.1) Total Bilirubin 0.4 mg/dL (0.2-1.0) Aspartate Amino Transf (AST/SGOT) 20 U/L (15-37) Alanine Aminotransferase (ALT/SGPT) 24 U/L (14-59) Alkaline Phosphatase 87 U/L (46-116) Total Protein 6.5 g/dL (6.4-8.2) Albumin 2.6 g/dL (3.4-5.0) Albumin/Globulin Ratio 0.7 (1.0-1.7) Glucose (Fingerstick) 102 mg/dL (70-99) Test 02/02/18 06:16 Prothrombin Time 14.1 SEC (9.4-11.4) Prothromb Time International Ratio 1.4 (0.9-1.1) Activated Partial Thromboplast Time 81 SEC (23-33) Sodium Level 135 mmol/L (136-145) Potassium Level 4.0 mmol/L (3.5-5.1) Chloride Level 101 mmol/L (98-107) Carbon Dioxide Level 29 mmol/L (21-32) Anion Gap 5 (6-14) Blood Urea Nitrogen 14 mg/dL (7-20) Creatinine 1.1 mg/dL (0.6-1.0) Estimated GFR (Cockcroft-Gault) 50.8 Glucose Level 100 mg/dL (70-99) Calcium Level 8.4 mg/dL (8.5-10.1) Physical Exam: Gen.: No apparent distress, awake and alert HEENT: Dentures absent, nose and throat clear mucous membranes moist Neck: Supple, no tenderness or masses Cardiovascular: Normal S1 and S2 no murmurs Pulmonary: Good air movement no respiratory distress no wheezes Abdomen: Soft nontender nondistended Extremities: No clubbing cyanosis or edema no new tenderness masses or skin changes ASSESSMENT: Left lower extremity DVT, recurrent Acute kidney injury secondary dehydration PLAN: Discharge home with a card which will provide for 30 days of outpatient eliquis. I went over her medications to continue on those to discontinue (see departure summary) as well as precautions related to outpatient anticoagulation. The patient has self-administered Lovenox as an outpatient in the past and is familiar. She agrees to follow up with her primary care clinic this week to recheck her blood work and condition as well as to arrange future medications and monitoring. STACIE NOYOLA DO Feb 02, 2018 12:13 pm
== END 2018-02-02 11:53 | disposition home or self-care (01) | DRG 300 ==
LOC: ER 11:13 → 1 SOUTH 14:28
PROVIDERS: ADMIT Neuromusculoskeletal Medicine & OMM; ATTEND Neuromusculoskeletal Medicine & OMM
DX: I82.412 Acute embolism and thrombosis of left femoral vein (principal); N17.9 Acute kidney failure, unspecified; I82.432 Acute embolism and thrombosis of left popliteal vein; E78.00 Pure hypercholesterolemia, unspecified; I10 Essential (primary) hypertension; E11.9 Type 2 diabetes mellitus without complications; G25.81 Restless legs syndrome; E86.0 Dehydration; Z86.718 Personal history of other venous thrombosis and embolism; Z88.0 Allergy status to penicillin; Z88.2 Allergy status to sulfonamides
CPT/HCPCS: 36415; 80048; 80053; 82947; 85025; 85610; 85651; 85730; 93970; 96361; 96374; J1644; 99285-25; J7030